=== PATIENT | female | born 1965 | race Two or more races ===

== ENCOUNTER 2023-11-28 11:01 | Emergency (ER) | payer SELFPAY ==
[2023-11-28] MEDS: Ketorolac 30 MG/ML SDV IM ONE (11:45)
[2023-11-28 12:18] VITALS: BP 160/99; PULSE 78
== END 2023-11-28 11:58 | disposition home or self-care (01) ==
LOC: KA.ED 11:01
DX: S43.422D Sprain of left rotator cuff capsule, subsequent encounter (principal); G89.29 Other chronic pain; I10 Essential (primary) hypertension; X58.XXXD Exposure to other specified factors, subsequent encounter
CPT/HCPCS: 96372; 99283; J1885